=== PATIENT | female | born 1990 | race Caucasian/White ===

== ENCOUNTER 2016-06-20 20:00 | Outpatient (CLI) | payer MEDICAID | END 2016-06-20 21:21 | disposition home or self-care (01) | LOC: 2LDRP 20:00 → BC 20:00 | DX: O26.812 Pregnancy related exhaustion and fatigue, second trimester (principal); O99.89 Other specified diseases and conditions complicating pregnancy, childbirth and the puerperium; R42 Dizziness and giddiness; Z3A.23 23 weeks gestation of pregnancy ==

== ENCOUNTER 2016-07-06 19:10 | Outpatient (CLI) | payer MEDICAID | END 2016-07-06 22:00 | disposition home or self-care (01) | LOC: BC 19:10 → 2LDRP 19:10 → BC 22:00 | DX: O47.02 False labor before 37 completed weeks of gestation, second trimester (principal); Z3A.26 26 weeks gestation of pregnancy ==